=== PATIENT | male | born 1990 | race Caucasian/White ===

== ENCOUNTER 2017-10-25 08:31 | Emergency (ER) | payer MEDICAID, OTHER ==
--- NOTE | 2017-10-25 09:18 | EDPHY ---
H & P Time Seen by Provider: 10/25/17 08:59 HPI/ROS: CHIEF COMPLAINT: Back pain HISTORY OF PRESENT ILLNESS: 27-year-old male presents to the emergency department with ongoing back pain. Patient has a history of chronic pain in his left low back and left hip intermittently for years. He states that he has been going to a chiropractor off and on for the last year. He had a recent adjustment by the chiropractor and now has increasing pain. He has had some tingling in his left foot occasionally. He has had some numbness in his left foot as well. He does not have that now. He notes that he fell down some stairs about a month ago but did not have any new or worsening pain associated with this. He states "I just went about my day and did not think anything of it ". He also reports doing some heavy lifting over last few days building a deck. He denies bowel or bladder incontinence. His pain is worse with certain movements. He denies pain in his chest or difficulty breathing. Denies abdominal pain. No fevers or chills. He was prescribed Flexeril and Mobic yesterday which she tried taking without relief. He has not had any imaging of his back. He has not followed up with neurosurgeon or primary care provider. REVIEW OF SYSTEMS: Constitutional: No fever, no chills. Eyes: No double or blurry vision. ENT: No sore throat. Respiratory: No cough, no shortness of breath. Cardiac: No chest pain. Gastrointestinal: No abdominal pain, vomiting or diarrhea. Genitourinary: No dysuria. Musculoskeletal: Back pain as above. No neck pain. Skin: No rashes. Neurological: No headache. Past Medical/Surgical History: Chronic back pain and left hip pain Social History: Single, currently staying with his mom in [place] Smoking Status: Light smoker Physical Exam: General Appearance: Alert, no distress. Eyes: Pupils equal and round. Extraocular motions are all intact. ENT: Mouth: Mucous membranes moist. Respiratory: No wheezing, rhonchi, or rales, lungs are clear to auscultation. Cardiovascular: Regular rate and rhythm. Gastrointestinal: Abdomen is soft and nontender, no masses, no rebound or guarding, bowel sounds normal. Neurological: Alert and oriented x 3, cranial nerves II through XII grossly intact Skin: Warm and dry, no rashes. Musculoskeletal: Nontender to palpate along the cervical, thoracic or lumbar spine. Neck is supple. Extremities: Full range of motion and no peripheral edema. Straight leg raise is negative bilaterally. Reflexes are 2+ and equal for lower extremities bilaterally. Strength is 2+ and equal for lower extremities bilaterally. Strong dorsalis pedis and posterior tibial pulses bilateral lower extremities. Normal heel-toe walking. He has pain with trying to touch his toes or arching his back. He is able to do a deep knee bend without assistance. Psychiatric: Patient is oriented X 3, there is no agitation. Constitutional: Initial Vital Signs Temperature (C) 36.5 C 10/25/17 08:36 Heart Rate 89 10/25/17 08:36 Respiratory Rate 16 10/25/17 08:36 Blood Pressure 125/77 H 10/25/17 08:36 O2 Sat (%) 97 10/25/17 08:36 O2 Delivery Mode Room Air Allergies/Adverse Reactions: No Known Allergies Allergy (Unverified 10/25/17 08:35) Home Medications: Medication Instructions Recorded methylPREDNISolone [Medrol Dose 1 each PO AD #0 ea 10/25/17 Dashawn] Medical Decision Making ED Course/Re-evaluation: 27-year-old male presents to the emergency department with low back pain. The patient has a history of chronic back pain and has never seen Neurosurgery or had any imaging of his back. On examination the patient has symmetrical reflexes. He has normal and equal strength as well sensation on examination. I do not think emergent MRI is indicated in the emergency department. I did explain that he would likely require 1 as an outpatient. He was given referral to primary care provider. He was given a prescription for Medrol Dosepak. He was also encouraged to use lidocaine patches. The patient and mother at bedside were comfortable with this plan. They are given primary care referral as well as neurosurgical referral. Differential Diagnosis: Back pain including but not limited to muscular pain, herniated disc, spine fracture, intra-abdominal causes and urinary tract infection. Departure - Departure Disposition: Home, Routine, Self-Care Clinical Impression: Low back pain Qualifiers: Chronicity: acute Back pain laterality: left Sciatica presence: without sciatica Qualified Code(s): M54.5 - Low back pain Condition: Good Instructions: Lumbar Radiculopathy (ED), Back Pain (ED) Additional Instructions: Ibuprofen 600 mg every 8 hr as needed for pain. You may continue Flexeril as needed for muscular spasm. Medrol Dosepak as directed for 1 week. Lidocaine patches, [id number], can also be helpful to relieve pain. You should schedule follow-up appointment with neurosurgeon as soon as possible. Return to the emergency department if you develop weakness in her lower extremities, bowel or bladder incontinence, or if you feel worse in any way. Referrals: Mendez Lynch MD [Medical Doctor] - 2-3 days without fail (On-call neurosurgeon) Orville Hidalgo MD [Medical Doctor] - As per Instructions (Primary care provider deportation examiner) Prescriptions: methylPREDNISolone [Medrol Dose Dashawn] 1 each PO AD #0 ea
[2017-10-25 10:00] VITALS: BP 122/73
== END 2017-10-25 10:00 | disposition home or self-care (01) ==
DX: M54.5 Low back pain (principal); F17.200 Nicotine dependence, unspecified, uncomplicated